=== PATIENT | female | born 1995 | race Caucasian/White ===

== ENCOUNTER 2024-05-28 07:05 | Inpatient (IN) | payer BC, SELFPAY ==
[2024-05-28] VITALS (84 sets, daily range): BP systolic 88–141; BP diastolic 50–78; PULSE 32–91; RESP 14–16; TEMP 36.3–37.2; O2SAT 94–100; BMI 32.1
[2024-05-28] MEDS: Lactated Ringers 1,000 ML 50 ML IV (07:50)
[2024-05-28 07:54] LABS: Absolute Lymphocyte Count 1.41 X10^3/uL (0.83-4.51); Basophil# 0.01 X10^3/uL; Basophil% 0.1 % (0-1); Eosinophil# 0.06 X10^3/uL; Eosinophils% 0.9 % (0-5); Hematocrit 35.8 % (37-47); Lymphocyte # 1.41 X10^3/ul (0.83-4.51); Lymphocyte % 20.5 % (19-41); Mean Corp Hgb Conc 33.5 g/dL (32-36); Mean Corpuscular Hgb 26.5 pg (27.0-32.0); Mean Platelet Vol. 10.6 fl (6.2-12.0); Monocyte# 0.37 X10^3/uL; Monocyte% 5.4 % (0-10); NRBC Flagged by Analyzer 0 % (0-5); Neutrophil # 4.99 X10^3/uL (2.7-7.7); Neutrophil % 72.5 % (47-70); Platelet Count 196 K/mm3 (150-450); RBC Distribution Width CV 14.4 % (11.6-14.6); RBC Distribution Width SD 40.8 fl (35.1-43.9); Red Blood Count 4.53 M/mm3 (4.2-5.4); White Blood Count 6.9 K/mm3 (4.4-11.0)
[2024-05-28] MEDS: Oxytocin 15 Units/NS 250ml 15 UNITS/250 ML IV.SOLN 2 UNITS IV (08:12)
[2024-05-28 08:57] LABS: Syphilis Antibodies Non-reactive
[2024-05-28] MEDS: 0.9% Normal Saline Single 100 ML IV.SOLN. INTRA-UTER (09:14)
[2024-05-28] MEDS: Lactated Ringers 1,000 ML 999 ML IV (10:21)
[2024-05-28 11:38] LABS: Hepatitis C Antibody Non-Reactive (Nonreactive)
[2024-05-28] MEDS: fentaNYL-bupivacaine (epidural) 100 ML BAG EPIDURAL ×2 (11:44→17:33)
--- NOTE | 2024-05-28 13:13 | PCM.PN.BLA ---
Progress Note At bedside to check on pt. She is comfortable with her epidural. Assessment & Plan Assessment/Plan (1) Encounter for induction of labor: PLAN: Cvx 3/60/-2, head palpated and not well applied, cervix posterior. Continue Pitocin per protocol and position changes. Will AROM when able. (2) 39 weeks gestation of : (3) Polyhydramnios affecting : (4) Velamentous insertion of umbilical cord:
--- NOTE | 2024-05-28 13:14 | PCM.HP.OB ---
HPI - General General Date of Admission: 05/28/24 Date of Service: 05/28/24 Chief Complaint: induction of labor planned HPI Narrative JESSICA YAN, is a 28 F who presents for a scheduled induction of labor at 39 weeks for polyhydramnios and velamentous cord insertion. She offers no complaints. [facility] Medical History (Updated 05/28/24 @ 13:[address] Shayy Llamas, DO) Polyhydramnios Anemia Migraine headache Asthma History of echocardiogram Chiari malformation History of Holter monitoring Hx of vaginal delivery Home Medications ?Medication ?Instructions ?Recorded ?Last Taken ?Type choline bitartrate 300 mg 300 mg PO DAILY supplement 04/01/24 05/27/24 21:00 History tablet,extended release vits no.130-ferrous fum 1 tab PO DAILY supplement 04/01/24 05/27/24 21:00 History 27 mg iron-folic acid 800 mcg tablet ( Vitamin) Allergy/AdvReac Type Severity Reaction Status Date / Time hydrocodone (From Vicodin) Allergy Severe Other Verified 05/28/24 07:38 strawberry Allergy Severe Hives Verified 05/28/24 07:38 Surgical History (Updated 04/01/24 @ 10:23 by Nely Bueno) History of repair of ACL Social History Smoking Status: Never smoker NST FHR Rate Baby A FHR Category:: Category I Vital Signs Vital Signs Vital Signs: 05/28/24 07:32 05/28/24 07:32 05/28/24 07:32 Temperature Temperature Source Temporal Pulse Rate 82 Respiratory Rate Blood Pressure 111/63 BP Systolic 111 BP Diastolic 63 Pulse Ox 05/28/24 07:32 05/28/24 07:32 05/28/24 08:35 Temperature 99.0 F Temperature Source Pulse Rate Respiratory Rate 16 Blood Pressure 117/70 BP Systolic 117 BP Diastolic 70 Pulse Ox 05/28/24 08:35 05/28/24 08:35 05/28/24 08:35 Temperature Temperature Source Temporal Pulse Rate 76 Respiratory Rate 16 Blood Pressure BP Systolic BP Diastolic Pulse Ox 05/28/24 08:35 05/28/24 09:26 05/28/24 09:27 Temperature 99.0 F Temperature Source Pulse Rate Respiratory Rate 16 Blood Pressure 105/65 BP Systolic 105 BP Diastolic 65 Pulse Ox 05/28/24 09:27 05/28/24 09:27 05/28/24 10:41 Temperature Temperature Source Pulse Rate 62 Respiratory Rate Blood Pressure 113/61 BP Systolic 113 BP Diastolic 61 Pulse Ox 98 05/28/24 10:41 05/28/24 10:41 05/28/24 10:41 Temperature Temperature Source Temporal Pulse Rate 63 Respiratory Rate Blood Pressure BP Systolic BP Diastolic Pulse Ox 100 05/28/24 10:41 05/28/24 10:41 05/28/24 11:17 Temperature 98.5 F Temperature Source Pulse Rate Respiratory Rate 16 Blood Pressure 141/68 H BP Systolic 141 BP Diastolic 68 Pulse Ox 05/28/24 11:17 05/28/24 11:21 05/28/24 11:21 Temperature Temperature Source Pulse Rate 68 74 Respiratory Rate Blood Pressure 129/65 H BP Systolic 129 BP Diastolic 65 Pulse Ox 05/28/24 11:26 05/28/24 11:26 05/28/24 11:32 Temperature Temperature Source Pulse Rate 61 63 Respiratory Rate Blood Pressure 128/60 H BP Systolic 128 BP Diastolic 60 Pulse Ox 05/28/24 11:32 05/28/24 11:32 05/28/24 11:32 Temperature Temperature Source Pulse Rate 61 Respiratory Rate Blood Pressure 109/63 BP Systolic 109 BP Diastolic 63 Pulse Ox 100 05/28/24 11:32 05/28/24 11:37 05/28/24 11:37 Temperature Temperature Source Pulse Rate 63 Respiratory Rate 16 Blood Pressure BP Systolic BP Diastolic Pulse Ox 99 05/28/24 11:37 05/28/24 11:37 05/28/24 11:37 Temperature Temperature Source Pulse Rate 60 Respiratory Rate 16 Blood Pressure 117/70 BP Systolic 117 BP Diastolic 70 Pulse Ox 05/28/24 11:41 05/28/24 11:41 05/28/24 11:41 Temperature Temperature Source Pulse Rate 62 Respiratory Rate 16 Blood Pressure 109/61 BP Systolic 109 BP Diastolic 61 Pulse Ox 05/28/24 11:42 05/28/24 11:42 05/28/24 11:46 Temperature Temperature Source Pulse Rate 63 Respiratory Rate Blood Pressure 106/61 BP Systolic 106 BP Diastolic 61 Pulse Ox 99 05/28/24 11:46 05/28/24 11:46 05/28/24 11:47 Temperature Temperature Source Pulse Rate 60 61 Respiratory Rate 16 Blood Pressure BP Systolic BP Diastolic Pulse Ox 05/28/24 11:47 05/28/24 11:51 05/28/24 11:51 Temperature Temperature Source Pulse Rate 61 Respiratory Rate Blood Pressure 111/57 L BP Systolic 111 BP Diastolic 57 Pulse Ox 98 05/28/24 11:51 05/28/24 11:52 05/28/24 11:52 Temperature Temperature Source Pulse Rate 61 Respiratory Rate 16 Blood Pressure BP Systolic BP Diastolic Pulse Ox 99 05/28/24 11:56 05/28/24 11:56 05/28/24 11:57 Temperature Temperature Source Pulse Rate 59 L 59 L Respiratory Rate Blood Pressure 112/63 BP Systolic 112 BP Diastolic 63 Pulse Ox 05/28/24 11:57 05/28/24 11:57 05/28/24 12:02 Temperature Temperature Source Pulse Rate 59 L Respiratory Rate 16 Blood Pressure BP Systolic BP Diastolic Pulse Ox 99 05/28/24 12:02 05/28/24 12:03 05/28/24 12:03 Temperature Temperature Source Pulse Rate 58 L Respiratory Rate Blood Pressure 106/59 L BP Systolic 106 BP Diastolic 59 Pulse Ox 98 05/28/24 12:03 05/28/24 12:03 05/28/24 12:03 Temperature 98.3 F Temperature Source Temporal Pulse Rate Respiratory Rate 16 Blood Pressure BP Systolic BP Diastolic Pulse Ox 05/28/24 12:27 05/28/24 12:27 05/28/24 12:27 Temperature Temperature Source Pulse Rate 58 L Respiratory Rate 16 Blood Pressure 107/64 BP Systolic 107 BP Diastolic 64 Pulse Ox 05/28/24 12:27 Temperature 98.8 F Temperature Source Pulse Rate Respiratory Rate Blood Pressure BP Systolic BP Diastolic Pulse Ox Weight Weight: 205 lb 3.2 oz Body Mass Index (BMI) 32.1 Labs Labs Labs: Antibody Screen Pending Hct 35.8 % (37-47) L Hgb 12.0 g/dL (12.0-15.0) Syphilis Total Ab Non-reactive Hepatitis C Antibody Non-Reactive (Nonreactive) Assessment & Plan (1) Velamentous insertion of umbilical cord: (2) Polyhydramnios affecting : (3) 39 weeks gestation of : (4) Encounter for induction of labor: PLAN: Routine intrapartum care. Cvx 1/t/h, posterior, vertex. Intracervical laguna placed in usual fashion and filled with 40 cc saline. Pitocin per protocol started. GBS negative. Epidural for pain control. EFW < 4500 grams and pelvis adequate.
[2024-05-28] MEDS: Lactated Ringers 1,000 ML 200 ML IV (15:56)
[2024-05-28] MEDS: LACTATED RINGERS 500 ML 999 ML IV ×2 (16:15→18:39)
--- NOTE | 2024-05-28 16:33 | PCM.PN.BLA ---
Progress Note At bedside to check on pt. Once position flat on her back for cervical exam she was lightheaded and placed on her left side. She was feeling better. No CP, SOB, palpitations, headache, dizziness. Physical Exam Const alert and no apparent distress General Appearance: comfortable Narrative: Cvx 360/-2, vertex. Assessment & Plan Assessment/Plan (1) Velamentous insertion of umbilical cord: (2) Polyhydramnios affecting : (3) 39 weeks gestation of : (4) Encounter for induction of labor: PLAN: AROM performed for large amount of clear fluid. Category 1 tracing. Lightheadedness: Manual blood pressure checked and 500 cc fluid bolus started. Bedside blood sugar 74. Discussed with patient likely from position changes and laying flat on back.
[2024-05-28 16:43] LABS: Bedside Glucose 74 mg/dL (74-106)
--- NOTE | 2024-05-28 19:48 | PLAC_PTH ---
PATIENT: JESSICA YAN LOC: [facility] U#:[id number] AGE/SX: 28/F ROOM: [facility]019 RE05/28/[address]: Dr. Shayy Llamas DO : 1995 BED: 1 DIS: 05/30/2024 SPEC #: [id number] RECD: 05/28/24 21:01 STATUS: MARCUS FLORIN #: [id number] SARIAH: 05/28/24 19:[address]: Shayy Llamas DEPT: SURGICAL PATHOLOGY RECD BY: Lay Chanel Tissues: Placenta, NOS Procedures: Surgery Specimen Level V HEADER OPERATION: Vaginal delivery PRE-OP DIAGNOSIS: Abnormal cord insertion TISSUE SUBMITTED: Placenta MICROSCOPIC DIAGNOSIS Placenta: Placental disc - third trimester placenta (588 gm). Focal increased intervillous and perivillous fibrin deposition. Membranes - no pathologic diagnosis. Umbilical cord - three blood vessels and marginal insertion. SJ: 06/01/2024 MICROSCOPIC DESCRIPTION Slides are reviewed. GROSS DESCRIPTION SPECIMEN: PLACENTA / CLINICAL INFORMATION: A. Weight: 3.405 kg B. Gestational Age:39 weeks C. Sex: Male PLACENTAL WEIGHT (POST FIXATION): 588gm PLACENTAL DIMENSIONS: 16.0 x 15.0 x 4.0cm PLACENTAL SHAPE: Usual ovoid PLACENTAL WEIGHT FOR GESTATIONAL AGE: Over 99th percentile MEMBRANES - Present A. Insertion: Marginal B. Site of rupture from edge: 6.0 cm from edge of placental disc C. Color of membrane: Mitchell-davidson D. Abnormalities: None UMBILICAL CORD - Present A. Color: Mitchell-davidson B. Insertion: Marginal C. Length: 38.0 cm D. Diameter: 1.2 cm E. Number of vessels: Three F. Abnormalities: None PLACENTAL DISC - Present A. Color of surface: Mitchell-davidson B. surface abnormalities: None C. Maternal cotyledons: Intact with minimal tears D. Attached retro placental clot: No clot E. Cut surface: Dark red and spongy F. Lesions: None G. Separate clot: Multiple detached blood clots weighing 52gm and measuring 9.0 x 6.0 x 2.0cm. SECTIONS SUBMITTED: Dr. Mcknight (6 cassettes) - remove if Dr. Henry 1. Membrane roll 2. Cord, maternal end 3. Cord, end 4. Placental disc, and maternal surfaces 5. Placental disc, and maternal surfaces 6. Placental disc, and maternal surfaces SJ/mr 05/31/2024 TC:5 CPT: 92013
[2024-05-28] MEDS: Oxytocin 15 Units/NS 250ml 15 UNITS/250 ML IV.SOLN 334 UNITS IV (19:51)
[2024-05-28] MEDS: Oxytocin 15 Units/NS 250ml 15 UNITS/250 ML IV.SOLN 83 UNITS IV (20:28)
--- NOTE | 2024-05-28 21:22 | PCM.OPRPT ---
Problems Associated Problem List Diagnoses (1) Velamentous insertion of umbilical cord: (2) Polyhydramnios affecting : (3) 39 weeks gestation of : (4) Encounter for induction of labor: Report of Operation Date of Procedure: 05/28/24 Pre-Operative Diagnosis: 39 week gestation, polyhydramnios, velamentous cord insertion, induction of labor planned Post-Operative Diagnosis: As above Surgery/Procedure Performed:: Repair of second degree perineal laceration Description of Surgical Findings:: VFI in STEPHANIE position. Clear fluid. Apgars 9, 9. Placenta with velamentous cord insertion noted and sent to pathology for review Surgeon: Shayy Llamas prosthetics technician: None Type of Anesthesia: Epidural Special Medications: None Specimen's removed: Placenta Drains: Cherry Estimated Blood Loss (mL): 100 Fluids Replaced: N/A Description of Procedure: Patient complete and pushing. Head of delivered in left occiput anterior position, followed by the anterior shoulder, posterior shoulder and body of the infant spontaneously without any force, traction, or delay. A vigorous viable female was placed on maternal abdomen and the cord was clamped and cut after a 60 second delay by the father of the baby. Placenta delivered with fundal massage and was noted to be intact with a velamentous cord insertion. Uterus was explored x 1. 3-0 Vicryl was used to repair a first-degree vaginal laceration. Fundus firm and bleeding hemostatic. A vaginal sweep was performed. Sponge and sharp counts were correct. Grafts/Implants Used: None Complications None Admit VTE Documentation VTE Present on Admission: No
[2024-05-28] MEDS: Ibuprofen 600 MG Tablet PO (22:11)
[2024-05-29] VITALS (14 sets, daily range): BP systolic 100–113; BP diastolic 57–70; PULSE 36–72; RESP 16; TEMP 36.1–37.1; O2SAT 96–98
[2024-05-29] MEDS: Acetaminophen 500 MG Tablet 1000 MG PO ×4 (03:45→20:45)
--- NOTE | 2024-05-29 11:30 | PCM.PN.OB ---
Subjective Subjective pt doing well. pain controlled. cramping with . lochia normal. no cp, sob, palpitations, lightheadedness, leg pain. ambulating and voiding without difficulty. Objective Data Objective Data Vital Signs: Vital Signs Temp Pulse Resp BP Pulse Ox O2 Del Method 97.7 F L 51 L 16 100/64 98 Room Air 05/29/24 08:10 05/29/24 08:13 05/29/24 08:10 05/29/24 08:13 05/29/24 08:10 05/29/24 08:10 Oxygen Delivery Method Room Air Weight: 205 lb 3.2 oz Body Mass Index (BMI) 32.1 Intake & Output: Intake and Output for Last 24 Hours 05/27/24 05/28/24 05/29/24 23:59 23:59 23:59 Intake Total 4498.13 / 4498.13 Output Total 400 / 400 1200 / 1200 Balance 4098.13 / 4098.13 -1200 / -1200 Lab / Micro Data 05/28/24 07:40 Labs: Laboratory Results - last 24 hr 05/28/24 07:40: Hepatitis C Antibody Non-Reactive, Blood Type A POSITIVE, Antibody Screen NEGATIVE 05/28/24 16:15: POC Glucose 74 Physical Exam Const alert and no apparent distress General Appearance: comfortable HEENT normocephalic Resp normal respiratory effort GI soft to palpation, non-tender and non-distended GI Narrative: FF@U-2 Extremity no calf tenderness Extremity Narrative: Trace edema bilaterally Assessment & Plan (1) Vaginal delivery: PLAN: PPD#1 s/p . Doing well and . Routine care. Anticipate discharge tomorrow.
[2024-05-29] MEDS: Ibuprofen 600 MG Tablet PO ×2 (12:53→18:55)
[2024-05-30] VITALS (7 sets, daily range): BP systolic 106–111; BP diastolic 61–67; PULSE 51–107; RESP 16; TEMP 36.6–37.3; O2SAT 81–98
--- NOTE | 2024-05-30 05:47 | PCM.PN.OB ---
Subjective Subjective pt doing well. tearful about as she does not feel has good latch. otherwise offers no complaints and desires discharge. pain controlled. ambulating and voiding without difficulty. tolerating diet without nausea and vomiting. denies lightheadedness, dizziness, cp, sob, leg pain. lochia normal. Objective Data Objective Data Vital Signs: Vital Signs Temp Pulse Resp BP Pulse Ox O2 Del Method 97.9 F 54 L 16 106/61 98 Room Air 05/30/24 02:05/30/24 02:11 05/30/24 02:11 05/30/24 02:11 05/30/24 02:05/30/24 02:11 Oxygen Delivery Method Room Air Weight: 205 lb 3.2 oz Body Mass Index (BMI) 32.1 Intake & Output: Intake and Output for Last 24 Hours 05/28/24 05/29/24 05/30/24 23:59 23:59 23:59 Intake Total 4498.13 / 4498.13 Output Total 400 / 400 1200 / 1200 Balance 4098.13 / 4098.13 -1200 / -1200 Lab / Micro Data 05/28/24 07:40 Physical Exam Const alert and no apparent distress General Appearance: comfortable Assessment & Plan (1) Vaginal delivery: PLAN: PPD#2 s/p . Doing well and desires discharge. Recommend follow up with . Discharge instructions reviewed.
--- NOTE | 2024-05-30 05:52 | DCINST_ITS ---
Discharge Instructions Diet Discharge Diet: No restrictions Activity Discharge Activity: May Drive and May Shower May resume sexual activity in: 6 weeks Ice area for (Minutes): 15 Weight Bearing Status: Weight bearing as tolerated Lifting Restrictions: nothing heavier than baby Dressing / Incision Call your doctor if your incision/area has: Continuous Slow Oozing, Sudden Increased Bleeding, Increased Pain/ Swelling, Increased Redness, Foul Smelling Discharge and Swelling at the incision site Call your doctor if you observe: Fever of 101 or Higher, Coldness, Increased Pain, Numbness or Tingling, Change in Color, Inability to urinate, Inability to have a bowel movement, Using more than 1 pad per hour, Shortness of breath, Dizziness, Fainting spells, Swelling in the ankles, Chest pain, Prolonged hiccupping, Increased palpitations (irregular heartbeat), Calf discomfort and Uncontrolled pain Cleanse incision/area with: Soap & Water Follow Up Care Please Follow Up With: Shayy Llamas DO When: 1-2 weeks for early visit 6 weeks for exam Test Results: Test results from this visit will be discussed in further detail at your follow- up appointment, if applicable. Discharge Plan Admission Admit Date/Time: 05/28/24 07:05 Primary Reason for Your Visit: Delivery Attending Provider: Shayy Llamas Instructions Patient Instructions: After a Vaginal Discharge Orders/Prescriptions Prescriptions: New ibuprofen 600 mg tablet 600 mg PO Q6H PRN (Reason: pain) Qty: 30 0RF Continued Vitamin 27 mg iron- 800 mcg tablet 1 tab PO DAILY choline bitartrate 300 mg tablet extended release 300 mg PO DAILY Disposition Disposition (needs filled in before D/C Order can be placed): Home, Self Care
[2024-05-30] MEDS: Acetaminophen 500 MG Tablet 1000 MG PO (11:35)
[2024-06-01 20:30] LABS: Pathology Specimen OB SEE PATHOLOGY REPORT
== END 2024-05-30 13:48 | disposition home or self-care (01) | DRG 807 ==
PROVIDERS: Admitting Provider Obstetrics & Gynecology; Referring Provider Obstetrics & Gynecology; Visit Provider Obstetrics & Gynecology
DX: O40.3XX0 Polyhydramnios, third trimester, not applicable or unspecified (principal); Z37.0 Single live birth; O43.123 Velamentous insertion of umbilical cord, third trimester; O70.1 Second degree perineal laceration during delivery; Z79.891 Long term (current) use of opiate analgesic; Z3A.39 39 weeks gestation of pregnancy
CPT/HCPCS: 59025; 59050; 82962; 85025; 86780; 86803; 86850; 86900; 86901; 88307; 99221; J7120; G0378